=== PATIENT | female | born 1970 | race Caucasian/White ===

== ENCOUNTER 2017-02-07 10:39 | Emergency (ER) | payer OTHER ==
[~2017-02-07] VITALS: Ht 165.1 cm; Wt 68.0 kg
[2017-02-07 10:43] VITALS: BP 148/88
[2017-02-07] MEDS ORDERED: fentaNYL PF 100 MCG/2 ML VIAL IV PRN (11:00)
[2017-02-07 11:10] LABS: BASO # 0.1 x10^3/uL (0.0-0.2); BASO % 1 % (0-3); EOS # 0.2 x10^3/uL (0.0-0.7); EOS % 2 % (0-3); HEMATOCRIT 44.9 % (36.0-47.0); HEMOGLOBIN 15.5 g/dL (12.0-15.5); LYMPH # 2.1 x10^3/uL (1.0-4.8); LYMPH % 21 % (24-48); MEAN CORPUSCULAR HEMOGLOBIN 30 pg (25-35); MEAN CORPUSCULAR HGB CONC 35 g/dL (31-37); MEAN CORPUSCULAR VOLUME 87 fL (79-100); MONO # 0.8 x10^3/uL (0.0-1.1); MONO % 9 % (0-9); NEUT # 6.6 x10^3uL (1.8-7.7); NEUT % 67 % (31-73); PLATELET COUNT 279 x10^3/uL (140-400); RED CELL DISTRIBUTION WIDTH 13.5 % (11.5-14.5); WHITE BLOOD COUNT 9.9 x10^3/uL (4.0-11.0)
[2017-02-07 11:22] LABS: ALBUMIN 3.8 g/dL (3.4-5.0); ALBUMIN/GLOBULIN RATIO 0.9 (1.0-1.7); CALCIUM 8.8 mg/dL (8.5-10.1); CREATININE 0.7 mg/dL (0.6-1.0); GFR 89.3; POTASSIUM 3.8 mmol/L (3.5-5.1); TOTAL BILIRUBIN 0.6 mg/dL (0.2-1.0); TOTAL PROTEIN 8.1 g/dL (6.4-8.2)
[2017-02-07] MEDS ORDERED: IOHEXOL 300 MG/ML 75 ML VIAL. IV ONE (11:45)
--- NOTE | 2017-02-07 11:54 | PHYS DOC ---
Past History Past Medical History: No Pertinent History Past Surgical History: Tonsillectomy Smoking: Non-smoker Alcohol Use: None Drug Use: None Adult General Chief Complaint Chief Complaint: head and neck pain HPI HPI Patient is a 46-year-old female sent from the primary care physician's office with the complaint of head and neck pain. This began 2 days ago as a nonspecific mild headache. She woke up the next morning and her neck felt very sore, she thought she had slept wrong. She saw her doctor in the office and was prescribed Imitrex and Flexeril. She has taken those without relief. Patient denies fever or chills. She denies preceding illness. She denies any injury or whiplash type injury lately. She's never had this before. Her primary complaint right now is that her neck muscles are very painful and her head hurts where her neck muscles insert behind her ears. She does not have a particularly bad all over headache, it's just painful in that occipital area. She also feels that the front of her neck is "swollen" and her neck muscles hurt when she swallows. She does not have a sore throat, swallowing pain is more external. She did not have a sore throat prior to the symptoms beginning. Patient recently has been dealing with some knee pain and saw the doctor for that, she was prescribed an anti-inflammatory which she was taking but switched to Tylenol in the last day or so because of the neck pain. Review of Systems Review of Systems Constitutional: Denies fever or chills [] Eyes: Denies change in visual acuity, redness, or eye pain [] HENT: Denies nasal congestion or sore throat [] Respiratory: Denies cough or shortness of breath [] Musculoskeletal: As in history of present illness Integument: Denies rash or skin lesions [] Neurologic: Denies focal weakness or sensory changes [] Current Medications Current Medications Current Medications Medications (Trade) Dose Ordered Sig/Michael Start Time Stop Time Status Last Admin Dose Admin Fentanyl Citrate (Fentanyl 2ml Vial) 50 mcg PRN Q15MIN PRN 02/07/17 11:00 02/08/17 10:59 02/07/17 11:06 50 MCG Iohexol (Omnipaque 300 Mg/ml) 75 ml 1X ONCE 02/07/17 11:45 02/07/17 11:46 Allergies Allergies Allergies Coded Allergies Type Severity Reaction Last Updated Verified Penicillins Allergy Unknown 02/01/14 Yes Physical Exam Physical Exam Constitutional: Well developed, well nourished, alert, mentating normally, appears uncomfortable, she does not turn her head from side to side or flex/ extend her neck. She is swallowing without apparent difficulty and handling her secretions well. HENT: Normocephalic, atraumatic, bilateral external ears normal, bilateral EACs and TMs normal, oropharynx moist, no oral exudates, tonsils normal without tonsillitis, nose normal. [] Eyes: conjunctiva normal, no discharge. [] Neck: Tenderness over bilateral paraspinous cervical musculature and bilateral trapezius in the neck area. Tenderness present we're trapezius inserts Cardiovascular:Heart rate regular rhythm, no murmur [] Lungs & Thorax: Bilateral breath sounds clear to auscultation [] Abdomen: Bowel sounds normal, soft, no tenderness, no masses, no pulsatile masses. [] Skin: Warm, dry, no erythema, no rash. [] Back: No tenderness, no CVA tenderness. [] Extremities: No tenderness, no cyanosis, no clubbing, ROM intact, no edema. [] Neurologic: Alert and oriented X 3, normal motor function, normal sensory function, no focal deficits noted. [] Psychologic: Affect normal, judgement normal, mood normal. [] Current Patient Data Vital Signs Vital Signs Date Time Temp Pulse Resp B/P (MAP) Pulse Ox O2 Delivery O2 Flow Rate FiO2 02/07/17 11:15 76 96 02/07/17 11:06 16 02/07/17 10:43 98.5 Room Air Lab Results Laboratory Tests Test 02/07/17 10:59 White Blood Count 9.9 x10^3/uL (4.0-11.0) Red Blood Count 5.20 x10^6/uL (3.50-5.40) Hemoglobin 15.5 g/dL (12.0-15.5) Hematocrit 44.9 % (36.0-47.0) Mean Corpuscular Volume 87 fL (79-100) Mean Corpuscular Hemoglobin 30 pg (25-35) Mean Corpuscular Hemoglobin Concent 35 g/dL (31-37) Red Cell Distribution Width 13.5 % (11.5-14.5) Platelet Count 279 x10^3/uL (140-400) Neutrophils (%) (Auto) 67 % (31-73) Lymphocytes (%) (Auto) 21 % (24-48) L Monocytes (%) (Auto) 9 % (0-9) Eosinophils (%) (Auto) 2 % (0-3) Basophils (%) (Auto) 1 % (0-3) Neutrophils # (Auto) 6.6 x10^3uL (1.8-7.7) Lymphocytes # (Auto) 2.1 x10^3/uL (1.0-4.8) Monocytes # (Auto) 0.8 x10^3/uL (0.0-1.1) Eosinophils # (Auto) 0.2 x10^3/uL (0.0-0.7) Basophils # (Auto) 0.1 x10^3/uL (0.0-0.2) Sodium Level 137 mmol/L (136-145) Potassium Level 3.8 mmol/L (3.5-5.1) Chloride Level 102 mmol/L (98-107) Carbon Dioxide Level 25 mmol/L (21-32) Anion Gap 10 (6-14) Blood Urea Nitrogen 8 mg/dL (7-20) Creatinine 0.7 mg/dL (0.6-1.0) Estimated GFR (Cockcroft-Gault) 89.3 BUN/Creatinine Ratio 11 (6-20) Glucose Level 81 mg/dL (70-99) Calcium Level 8.8 mg/dL (8.5-10.1) Total Bilirubin 0.6 mg/dL (0.2-1.0) Aspartate Amino Transferase (AST) 14 U/L (15-37) L Alanine Aminotransferase (ALT) 31 U/L (14-59) Alkaline Phosphatase 75 U/L (46-116) Total Protein 8.1 g/dL (6.4-8.2) Albumin 3.8 g/dL (3.4-5.0) Albumin/Globulin Ratio 0.9 (1.0-1.7) L EKG EKG [] Radiology/Procedures Radiology/Procedures CT scan of the head and soft tissues of the neck read by the radiologist, no acute findings on either scan. [] Course & Med Decision Making Course & Med Decision Making Pertinent Labs and Imaging studies reviewed. (See chart for details) 46-year-old female presents with primarily neck pain which seems to be muscular , some head pain where her paraspinous and trapezius muscles insert into the base of her skull, but really a headache is not a big part of this. I considered the diagnosis of possible meningitis but I don't believe she has meningitis. She's had no fever, this began as primarily neck pain and continues to primarily be neck pain, her neck muscles are sore to palpation, her neck "stiffness" seems to be due to muscle soreness and not nuchal rigidity. CT scan of the head and soft tissue neck negative for significant findings. Labs unremarkable. The patient was given IV Toradol and 1 dose of a small amount of IV fentanyl. Her pain went from a 10 to a 3. She states she feels much more comfortable. She is massaging her neck muscles a little bit and that feels better. Discussed treatment plan and return precautions with the patient and her who understand and agree. See discharge instructions and prescriptions for plan. [] Dragon Disclaimer Dragon Disclaimer This chart was dictated in whole or in part using Voice Recognition software in a busy, high-work load, and often noisy Emergency Department environment. It may contain unintended and wholly unrecognized errors or omissions. Departure Departure: Impression: Primary Impression: Torticollis, acute Disposition: 01 HOME, SELF-CARE Condition: STABLE Referrals: ROBI RAE MD (PCP) Patient Instructions: Torticollis, Acute Additional Instructions: As we discussed, I believe your symptoms are coming from pain and stiffness of the neck muscles. Sometimes people wake up with this condition and don't really know why they got it. Continue taking Nambumetone 3 times a day, this is a good anti-inflammatory medication and will also help with the pain. Stop taking cyclobenzaprine (Flexeril) and sumitriptan, I don't believe those 2 are helping you. We will start prednisone, a steroid, which is a good anti-inflammatory. You had your first dose here, second dose is due tomorrow morning. Also prescription for hydrocodone, a strong pain medicine, use as needed for the next 2-3 days. This is an opiate, it will cause sedation and constipation. Do not take while driving. All of these medications, Nambumetone, prednisone, and hydrocodone, may be taken together, they are all different and will not cause interactions. Try ice because it helps with pain and inflammation to the affected areas. If you get worse, if you began to run a fever, if other new concerning symptoms , return to your doctor or emergency department. Scripts Prednisone (PREDNISONE) 20 Mg Tablet 1 TAB PO BID for neck pain, muscle inflammation, #10 TAB Prov: DELMIS VELEZ MD 02/07/17 Hydrocodone Bit/Acetaminophen (NORCO 5-325 TABLET) 1 Each Tablet 1-2 TAB PO Q4-6HRS for neck pain, #20 TAB Prov: DELMIS VELEZ MD 02/07/17 DELMIS VELEZ MD February 07, 2017 11:54
--- NOTE | 2017-02-07 12:34 | RAD ---
Clinical Indication: Headache and dizziness for 2 days. Technique: Study is dated February 07, 2017. CT images of the head were obtained from the skull base to the vertex without IV contrast. There are no comparison studies available. One or more of the following individualized dose reduction techniques were utilized for this examination: 1. Automated exposure control 2. Adjustment of the mA and/or kV according to patient size 3. Use of iterative reconstruction technique Findings: The ventricles are normal in size and configuration. There is no hemorrhage, extraaxial collection, mass, or midline shift. There is no large vascular distribution acute infarct. The posterior fossa and brainstem are unremarkable. Orbits are normal. The included paranasal sinuses and mastoid air cells are clear. There is no skull fracture appreciated on bone level images. Impression: No acute intracranial findings.
--- NOTE | 2017-02-07 12:38 | RAD ---
Indication: Left-sided neck pain for 2 days. Technique: Axial images and coronal and sagittal reformatted images are provided. 75 mL of intravenous Omnipaque 300 was administered without complication. No comparison is available. One or more of the following individualized dose reduction techniques were utilized for this examination: 1. Automated exposure control 2. Adjustment of the mA and/or kV according to patient size 3. Use of iterative reconstruction technique Findings: There is no mass or adenopathy. Subcentimeter lymph nodes along the cervical chains are presumed reactive. There is no fluid collection. Orbital contents are unremarkable. The included paranasal sinuses and mastoid air cells are clear. There is no airway narrowing. The parotid glands are unremarkable. Thyroid is normal in appearance. There is mild emphysema in the upper lobes. Impression: Negative for mass, adenopathy, or fluid collection.
[2017-02-07] MEDS ORDERED: PRED20TA PO (13:11)
[2017-02-07] MEDS ORDERED: HYDR-971 PO (13:11)
[2017-02-07] MEDS ORDERED: predniSONE 20 MG TABLET PO ONE (13:30)
== END 2017-02-07 13:25 | disposition home or self-care (01) ==
LOC: ER 10:39
DX: M43.6 Torticollis (principal); Z88.0 Allergy status to penicillin
CPT/HCPCS: 36415; 70450; 70491; 80053; 85027; 96374; 99285; J3010; J7512; Q9967

== ENCOUNTER → 2017-05-28 | Outpatient (CLI) | payer OTHER ==
[~2017-05-28] MED LIST: HYDR-971 PO; PRED20TA PO
--- NOTE | 2017-05-28 09:25 | RAD ---
Chest, 2 views, 05/28/2017: History: Productive cough, smoker Comparison is made to a study from 02/01/2014. The heart size is normal. There is minimal scarring over the pulmonary apices. There appear to be minimal scattered parenchymal scars. No pulmonary consolidation is seen. There is no evidence of pleural fluid. Mild spurring is present in the spine. IMPRESSION: No acute cardiopulmonary abnormality is detected.
== END | disposition home or self-care (01) ==
LOC: DXRADRC 09:05
PROVIDERS: ATTEND Physician Assistant
DX: G44.83 Primary cough headache (principal); J98.4 Other disorders of lung
CPT/HCPCS: 71020

== ENCOUNTER → 2017-06-02 | Outpatient (CLI) | payer OTHER ==
--- NOTE | 2017-06-02 10:08 | RAD ---
Chest, 2 views, 06/02/2017: History: Productive cough, wheezing Comparison is made to a study from 05/28/2017. The heart size and pulmonary vascularity are normal. There is minimal parenchymal scarring. No acute infiltrates are seen. There is no evidence of pleural fluid. Mild spurring is present in the spine. IMPRESSION: No acute cardiopulmonary abnormality is detected with no significant change since 05/28/2017.
== END | disposition home or self-care (01) ==
LOC: DXRADRC 09:52
PROVIDERS: ATTEND Physician Assistant
DX: J98.4 Other disorders of lung (principal); R06.2 Wheezing; R05 Cough
CPT/HCPCS: 71020

== ENCOUNTER 2019-05-28 08:17 | Emergency (ER) | payer SELFPAY ==
[~2019-05-28] VITALS: Ht 165.1 cm; Wt 81.6 kg
[~2019-05-28 08:17] MED LIST changes: +HYDR-3165 PO; -HYDR-971 PO
[2019-05-28] MEDS ORDERED: IV NORMAL SALINE 1,000ML 1,000 ML IV ONE (08:45)
[2019-05-28 08:52] LABS: BASO # 0.1 x10^3/uL (0.0-0.2); BASO % 1 % (0-3); EOS # 0.2 x10^3/uL (0.0-0.7); EOS % 3 % (0-3); HEMATOCRIT 45.7 % (36.0-47.0); HEMOGLOBIN 15.8 g/dL (12.0-15.5); LYMPH # 1.3 x10^3/uL (1.0-4.8); LYMPH % 16 % (24-48); MEAN CORPUSCULAR HEMOGLOBIN 30 pg (25-35); MEAN CORPUSCULAR HGB CONC 35 g/dL (31-37); MEAN CORPUSCULAR VOLUME 87 fL (79-100); MONO # 0.7 x10^3/uL (0.0-1.1); MONO % 9 % (0-9); NEUT # 5.9 x10^3uL (1.8-7.7); NEUT % 71 % (31-73); PLATELET COUNT 305 x10^3/uL (140-400); RED BLOOD COUNT 5.28 x10^6/uL (3.50-5.40); RED CELL DISTRIBUTION WIDTH 13.2 % (11.5-14.5); WHITE BLOOD COUNT 8.3 x10^3/uL (4.0-11.0)
[2019-05-28] MEDS ORDERED: IPRATRPIUM/ALBUTEROL 0.5/2.5MG 3 ML NEBU. NEB ONE (09:00)
[2019-05-28 09:11] LABS: ALBUMIN 3.9 g/dL (3.4-5.0); CALCIUM 9.2 mg/dL (8.5-10.1); CREATININE 1.1 mg/dL (0.6-1.0); GFR 52.4; POTASSIUM 3.6 mmol/L (3.5-5.1); TOTAL BILIRUBIN 0.5 mg/dL (0.2-1.0)
--- NOTE | 2019-05-28 09:11 | RAD ---
AP portable chest radiograph 05/28/2019 Clinical History: Chest pain. Shortness of breath. An AP erect portable digital radiograph of the chest was obtained. Comparison study is dated 06/02/2017. The cardiac and mediastinal silhouettes are within normal limits in size and configuration. No acute pulmonary infiltrate is noted. No pneumothorax or pleural effusion is seen. The osseous structures are grossly intact. Impression: No acute abnormality is seen. Electronically signed by: Bishop Arnold MD (05/28/2019 9:09 AM) [facility]
[2019-05-28] MEDS ORDERED: methylPREDNISolone SOD SUCC PF 125 MG/2 ML VIAL. IV ONE (09:45)
[2019-05-28] MEDS ORDERED: levoFLOXacin 500 MG TABLET PO ONE (09:45)
[2019-05-28 10:09] VITALS: BP 147/82
[2019-05-28] MEDS ORDERED: FEXO180T81 PO (10:16)
[2019-05-28] MEDS ORDERED: PRED50TA PO (10:16)
[2019-05-28] MEDS ORDERED: LEVO500T59 PO (10:16)
[2019-05-28] MEDS ORDERED: ALBU2.5V8 INH (10:17)
[2019-05-28 10:35] LABS: BGAS PH 7.41 (7.35-7.45)
--- NOTE | 2019-05-28 12:13 | ED.ADGEN ---
Past History Past Medical History: Anxiety, COPD Past Surgical History: Tonsillectomy Smoking: Non-smoker Alcohol Use: None Drug Use: None Adult General Chief Complaint Chief Complaint Shortness of air HPI HPI Patient is a 49-year-old smoker with history of COPD who presents with shortness of air, productive cough generalized weakness fatigue and sweats. Reports yellow-green sputum. Chest wall pain with cough Symptom onset was 2 weeks ago and have gradually progress. Patient has not sought medical evaluation for current complaints due to lack of resources. Reports feeling feverish but denies measured temperature. Orts nausea without vomiting. No other acute symptoms or complaints.[] Review of Systems Review of Systems Review symptoms as per history of present illness. All other review symptoms are negative. All other systems were reviewed and found to be within normal limits, except as documented in this note. Current Medications Current Medications Current Medications Medications (Trade) Dose Ordered Sig/Michael Start Time Stop Time Status Last Admin Dose Admin Albuterol/ Ipratropium (Duoneb) 3 ml 1X ONCE 05/28/19 09:00 05/28/19 09:01 DC 05/28/19 09:02 3 ML Levofloxacin (Levaquin) 500 mg 1X ONCE 05/28/19 09:45 05/28/19 09:46 DC 05/28/19 09:41 500 MG Methylprednisolone Sodium Succinate (SOLU-Medrol 125MG VIAL) 125 mg 1X ONCE 05/28/19 09:45 05/28/19 09:46 DC 05/28/19 09:41 125 MG Sodium Chloride 1,000 ml @ 1,000 mls/hr 1X ONCE 05/28/19 08:45 05/28/19 09:44 DC 05/28/19 09:02 1,000 MLS/HR Allergies Allergies Allergies Coded Allergies Type Severity Reaction Last Updated Verified Penicillins Allergy Unknown 02/01/14 Yes tramadol Allergy Unknown 05/28/19 Yes Physical Exam Physical Exam Constitutional: Well developed, well nourished, well-appearing.[] HENT: Normocephalic, atraumatic, bilateral external ears normal, oropharynx moist, no oral exudates, nose normal. [] Eyes: PERRLA, EOMI, conjunctiva normal, no discharge. [] Neck: Normal range of motion, no tenderness, supple, no stridor. [] Cardiovascular:Heart rate regular rhythm, no murmur [] Lungs & Thorax: Aspirations nonlabored, coarse diminished breath sounds bilaterally.[] Abdomen: Bowel sounds normal, soft, no tenderness, no masses, no pulsatile masses. [] Skin: Warm, dry, no erythema, no rash. [] Back: No tenderness, no CVA tenderness. [] Extremities: No tenderness, no cyanosis, no clubbing, ROM intact, no edema. [] Neurologic: Alert and oriented X 3, normal motor function, normal sensory function, no focal deficits noted. [] Psychologic: Affect normal, judgement normal, mood normal. [] Current Patient Data Vital Signs Vital Signs Date Time Temp Pulse Resp B/P (MAP) Pulse Ox O2 Delivery O2 Flow Rate FiO2 05/28/19 08:18 98.5 103 28 91 Room Air Lab Results Laboratory Tests Test 05/28/19 08:34 05/28/19 08:44 White Blood Count 8.3 x10^3/uL (4.0-11.0) Red Blood Count 5.28 x10^6/uL (3.50-5.40) Hemoglobin 15.8 g/dL (12.0-15.5) H Hematocrit 45.7 % (36.0-47.0) Mean Corpuscular Volume 87 fL (79-100) Mean Corpuscular Hemoglobin 30 pg (25-35) Mean Corpuscular Hemoglobin Concent 35 g/dL (31-37) Red Cell Distribution Width 13.2 % (11.5-14.5) Platelet Count 305 x10^3/uL (140-400) Neutrophils (%) (Auto) 71 % (31-73) Lymphocytes (%) (Auto) 16 % (24-48) L Monocytes (%) (Auto) 9 % (0-9) Eosinophils (%) (Auto) 3 % (0-3) Basophils (%) (Auto) 1 % (0-3) Neutrophils # (Auto) 5.9 x10^3uL (1.8-7.7) Lymphocytes # (Auto) 1.3 x10^3/uL (1.0-4.8) Monocytes # (Auto) 0.7 x10^3/uL (0.0-1.1) Eosinophils # (Auto) 0.2 x10^3/uL (0.0-0.7) Basophils # (Auto) 0.1 x10^3/uL (0.0-0.2) D-Dimer (Sophia) < 0.19 mg/L (0.00-0.50) Sodium Level 135 mmol/L (136-145) L Potassium Level 3.6 mmol/L (3.5-5.1) Chloride Level 99 mmol/L (98-107) Carbon Dioxide Level 24 mmol/L (21-32) Anion Gap 12 (6-14) Blood Urea Nitrogen 7 mg/dL (7-20) Creatinine 1.1 mg/dL (0.6-1.0) H Estimated GFR (Cockcroft-Gault) 52.4 BUN/Creatinine Ratio 6 (6-20) Glucose Level 120 mg/dL (70-99) H Calcium Level 9.2 mg/dL (8.5-10.1) Total Bilirubin 0.5 mg/dL (0.2-1.0) Aspartate Amino Transferase (AST) 45 U/L (15-37) H Alanine Aminotransferase (ALT) 61 U/L (14-59) H Alkaline Phosphatase 93 U/L (46-116) Troponin I Quantitative < 0.017 ng/mL (0-0.055) Total Protein 8.0 g/dL (6.4-8.2) Albumin 3.9 g/dL (3.4-5.0) Albumin/Globulin Ratio 1.0 (1.0-1.7) Blood pH 7.41 (7.35-7.45) Blood Gas PCO2 38 mmHg (35-45) Blood Gas PO2 78 mmHg (80-100) L Blood Gas HCO3 24 mmol/L (22-26) Arterial Bld O2 Saturation (Calc) 96 % (92-99) FiO2 26 % EKG EKG [] Radiology/Procedures Radiology/Procedures [] Course & Med Decision Making Course & Med Decision Making Pertinent Labs and Imaging studies reviewed. (See chart for details) [Steroids antibiotics breathing treatment given IV fluids with clinical improvement. Lab EKG chest x-ray reviewed right acute findings. Suspect a bacterial bronchitis with versus early pneumonia. Will continued supportive care with PCP follow-up. Return precautions reviewed. Patient verbalizes understanding agreement discharge instructions prior to departure.] Final Impression Final Impression [1. acute Bronchitis 2,. COPD exacerbation] Dragon Disclaimer Dragon Disclaimer This electronic medical record was generated, in whole or in part, using a voice recognition dictation system. ANEL BRIGGS DO May 28, 2019 12:13
== END 2019-05-28 10:20 | disposition home or self-care (01) ==
LOC: ER 08:17
DX: J20.9 Acute bronchitis, unspecified (principal); J44.0 Chronic obstructive pulmonary disease with (acute) lower respiratory infection; J44.1 Chronic obstructive pulmonary disease with (acute) exacerbation; F41.9 Anxiety disorder, unspecified; Z88.6 Allergy status to analgesic agent; Z88.0 Allergy status to penicillin
CPT/HCPCS: 36415; 71045; 80053; 82803; 84484; 85025; 85379; 87040; 94640; 96374; 99285; J2930; J7620; J7030

== ENCOUNTER 2019-11-07 09:32 | Emergency (ER) | payer SELFPAY ==
[~2019-11-07] VITALS: Ht 165.1 cm; Wt 150.5 kg
[~2019-11-07 09:32] MED LIST changes: +ALBU2.5V8 INH; +FEXO180T81 PO; +LEVO500T59 PO; +PRED50TA PO
[2019-11-07 09:42] VITALS: BP 147/80
--- NOTE | 2019-11-07 09:50 | PHYS DOC ---
Past History Past Medical History: Anxiety, COPD Past Surgical History: Tonsillectomy Smoking: Non-smoker, Cigarettes, Less than 1pk/day Alcohol Use: None Drug Use: None Adult General Chief Complaint Chief Complaint: COUGH HPI HPI Patient is a 49-year-old female with history of COPD, smoker, presented to ER t [facility] for evaluation of productive cough with yellow sputum for 4 days. Patient also complaint of fever and chill, she says she coughs so much at night, could not sleep. When she coughs her chest hurts. Patient denies any trouble breathing. Patient denies any abdominal pain, no nausea vomiting. Patient denies any recent travel out of country. Patient denies any history of coronary artery disease, no history of diabetes. Review of Systems Review of Systems All other ROS is negative unless otherwise noted in HPI Positive for productive cough with yellow sputum. Allergies Allergies Allergies Coded Allergies Type Severity Reaction Last Updated Verified Penicillins Allergy Unknown 02/01/14 Yes tramadol Allergy Unknown 05/28/19 Yes Physical Exam Physical Exam See above Constitutional: Well developed, well nourished, no acute distress, non-toxic appearance. [] HENT: Normocephalic, atraumatic, bilateral external ears normal, oropharynx moist, no oral exudates, nose normal. [] Eyes: PERRLA, EOMI, conjunctiva normal, no discharge. [] Neck: Normal range of motion, no tenderness, supple, no stridor. [] Cardiovascular:Heart rate regular rhythm, no murmur [] Lungs & Thorax: Bilateral breath sounds with expiratory wheezing. NO RESPIRATORY DISTRESS. Abdomen: Bowel sounds normal, soft, no tenderness, no masses, no pulsatile masses. [] Skin: Warm, dry, no erythema, no rash. [] Back: No tenderness, no CVA tenderness. [] Extremities: No tenderness, no cyanosis, no clubbing, ROM intact, no edema. [] Neurologic: Alert and oriented X 3, normal motor function, normal sensory function, no focal deficits noted. [] Psychologic: Affect normal, judgement normal, mood normal. [] Current Patient Data Vital Signs Vital Signs Date Time Temp Pulse Resp B/P (MAP) Pulse Ox O2 Delivery O2 Flow Rate FiO2 11/07/19 09:42 98.1 81 18 147/80 (102) 98 Room Air EKG EKG [] Radiology/Procedures Radiology/Procedures [][address] [address] IMAGING REPORT Signed PATIENT: KARLA CALVERT ACCOUNT: [id number] : 1970 LOCATION: ER AGE: 49 SEX: F EXAM STATUS: REG ER ORD. PHYSICIAN: VARUN FERRIS DO REASON: productive cough with yellow sputum for 4 days PROCEDURE: CHEST PA & LATERAL Chest, PA and Lateral: Technique: PA and lateral views of the chest were obtained. History: Productive cough. Comparison: 05/28/2019. Findings: The cardiomediastinal silhouette grossly appears unremarkable. Mild prominent bilateral interstitial lung markings particularly in the bibasilar lungs. IMPRESSION: Mild prominent interstitial lung markings particularly in the bibasilar lungs could be bronchitis. Electronically signed by: Roberto Hagen MD (11/07/2019 10:07 AM) [id number] DICTATED AND SIGNED BY: ROBERTO HAGEN MD DATE: 11/07/19 1007 CC: PCPCHERRI; VARUN FERRIS DO ~ Course & Med Decision Making Course & Med Decision Making Pertinent Labs and Imaging studies reviewed. (See chart for details) Patient is a 49-year-old female, smoker, and it was bronchitis, we'll discharge her home with treatment for IT. Educated her about smoking cessation. Dragon Disclaimer Dragon Disclaimer This electronic medical record was generated, in whole or in part, using a voice recognition dictation system. Departure Departure: Impression: Primary Impression: Bronchitis Disposition: 01 HOME, SELF-CARE Condition: STABLE Referrals: PCPCHERRI (PCP) FOLLOW UP WITH YOUR DOCTOR IN 2 DAYS FOR REEVALUATION Patient Instructions: Acute Bronchitis Additional Instructions: Thank you for visiting our Emergency Department. We appreciate you trusting us with your care. If any additional problems come up don't hesitate to return to visit us. Please follow up with your primary care provider so they can plan additional care if needed and know about the problem that you had. If symptoms worsen come back to the Emergency Department. Any concerning symptoms that start such as chest pain, shortness of air, weakness or numbness on one side of the body, running high fevers or any other concerning symptoms return to the ER. Scripts Albuterol Sulfate (PROAIR HFA INHALER) 8.5 Gm Hfa.aer.ad 2 PUFF IH PRN Q4-6HRS PRN for wheezing for 21 Days, #1 INHALER 0 Refills Prov: VARUN FERRIS DO 11/07/19 Prednisone (PREDNISONE) 20 Mg Tablet 1 TAB PO DAILY for BRONCHITIS for 10 Days, #10 TAB Prov: VARUN FERRIS DO 11/07/19 Azithromycin (ZITHROMAX) 250 Mg Tablet 1 PKG PO UD for BRONCHITIS, #6 TAB Prov: VARUN FERRIS DO 11/07/19 VARUN FERRIS DO Nov 07, 2019 09:50
--- NOTE | 2019-11-07 10:10 | RAD ---
Chest, PA and Lateral: Technique: PA and lateral views of the chest were obtained. History: Productive cough. Comparison: 05/28/2019. Findings: The cardiomediastinal silhouette grossly appears unremarkable. Mild prominent bilateral interstitial lung markings particularly in the bibasilar lungs. IMPRESSION: Mild prominent interstitial lung markings particularly in the bibasilar lungs could be bronchitis. Electronically signed by: Roberto Hagen MD (11/07/2019 10:07 AM) [id number]
[2019-11-07] MEDS ORDERED: ALBU2.5V8 IH (10:31)
[2019-11-07] MEDS ORDERED: AZIT250T PO (10:31)
[2019-11-07] MEDS ORDERED: PRED20TA PO (10:31)
== END 2019-11-07 10:40 | disposition home or self-care (01) ==
LOC: ER 09:32
DX: J40 Bronchitis, not specified as acute or chronic (principal); J44.9 Chronic obstructive pulmonary disease, unspecified; F17.210 Nicotine dependence, cigarettes, uncomplicated; Z88.0 Allergy status to penicillin; Z88.8 Allergy status to other drugs, medicaments and biological substances
CPT/HCPCS: 71046; 99283

== ENCOUNTER → 2021-09-16 | Outpatient (CLI) | payer OTHER ==
[~2021-09-16] MED LIST changes: +ALBU2.5V8 IH; +AZIT250T PO
--- NOTE | 2021-09-17 11:37 | RAD ---
BILATERAL DIGITAL SCREENING 2-D MAMMOGRAM INDICATION: Routine screening. COMPARISON: Exam of 08/18/2017 Interpretation was made using CAD. FINDINGS: Breast Density: B RIGHT BREAST: Peripherally calcified mass in the outer breast appears stable. There are no significan t new findings. LEFT BREAST: MLO view shows potential a new mass in the upper breast measuring about 1.7 cm. Margins appear irregular, although there are overlapping structures including vessels limiting evaluation. No corresponding finding is shown on the CC projection, although it could be too far lateral position. IMPRESSION: 1. New finding in the upper left breast on MLO view. Spot compression MLO view and exaggerated later al CC view are recommended along with ultrasound. ASSESSMENT: BI-RADS 0. Further workup indicated. RECOMMENDATION: Routine annual screening mammogram. The facility will notify the patient of the results via mail. Patient information will be entered int o the mammography reminder system with a target recall date for the next mammogram. A reminder letter will be generated by the facility. Electronically signed by: Steven Mortensen Jr., MD (09/17/2021 11:35 AM) [id number]
== END ==
LOC: MAMMO 09:11
PROVIDERS: ATTEND Nurse Practitioner
DX: Z12.31 Encounter for screening mammogram for malignant neoplasm of breast (principal)
CPT/HCPCS: 77067

== ENCOUNTER → 2021-10-01 | Outpatient (CLI) | payer OTHER ==
--- NOTE | 2021-10-01 15:24 | RAD ---
EXAM: Left breast diagnostic mammogram; left breast sonogram. HISTORY: 51-year-old female presents for evaluation of a left breast mass demonstrated on a screening mammogram dated 09/16/2021. TECHNIQUE: Full-field and spot compression views of the left breast are obtained. Sonographic imaging of the left breast and axilla was also performed. COMPARISON: 09/16/2021 BREAST PARENCHYMAL DENSITY: Level B - Scattered fibroglandular densities. FINDINGS: There is a spiculated mass within the posterior 2:00 position of the left breast in the axi llary tail. There are adjacent left axillary lymph nodes which are similar compared to prior studies. Sonographic imaging of the left breast demonstrates a 1.1 cm irregular mass with posterior shadowing and internal blood flow at the 2:00 position 12 cm from the nipple, corresponding with the mammograph ic lesion of concern. There are benign-appearing axillary lymph nodes. IMPRESSION: 1. 1.1 cm mass within the posterior 2:00 position of the left breast. Sonographic guided biopsy is re commended for definitive diagnosis. 2. BI-RADS Category 5: Highly suggestive of malignancy. These findings and recommendations were discussed with the patient and communicated to the referring clinician, January Hawley, at 1500 hours on 10/01/2021. If your mammogram demonstrates that you have dense breast tissue, which could hide abnormalities, and if you have other risk factors for breast cancer that have been identified, you might benefit from s upplemental screening tests that may be suggested by your ordering physician. Dense breast tissue, i n and of itself, is a relatively common condition. This information is not provided to cause undue c oncern, but rather to raise your awareness and to promote discussion with your physician regarding th e presence of other risk factors, in addition to dense breast tissue. A report of your mammography re sults will be sent to you and your physician. You should contact your physician if you have any ques tions or concerns regarding this report. Mammography is a sensitive method for finding small breast cancers, but it does not detect them all a nd is not a substitute for careful clinical examination. A negative mammogram does not negate a clin ically suspicious finding and should not result in delay in biopsying a clinically suspicious abnorma lity. PQRS compliance statement - Patient information was entered into a reminder system with a target due date for the next mammogram. "Our facility is accredited by the [employer] Mammography [employer]." Electronically signed by: Lisa Hernandez MD (10/01/2021 3:21 PM) [id number]
== END ==
LOC: MAMMO 13:42
PROVIDERS: ATTEND Nurse Practitioner
DX: N63.21 Unspecified lump in the left breast, upper outer quadrant (principal)
CPT/HCPCS: 76642; 77065

== ENCOUNTER → 2021-11-08 | Outpatient (CLI) | payer OTHER ==
--- NOTE | 2021-11-08 13:15 | RAD ---
EXAM: Pelvic sonogram. HISTORY: IUD placement. TECHNIQUE: Sonographic imaging of the pelvis was performed. COMPARISON: None. FINDINGS: The uterus measures 12.7 x 5.8 x 4.8 cm. There is an intrauterine contraceptive device with in the endometrial cavity. The ovaries are normal in size and demonstrate normal blood flow. There is a 3.9 cm complicated right ovarian cyst with internal septations or cluster of cysts. There is no pe lvic free fluid. IMPRESSION: 1. IUD in expected position. 2. 3.9 cm corticated right ovarian cyst with internal septations or cluster of cysts. Electronically signed by: Lisa Hernandez MD (11/08/2021 1:13 PM) [id number]
== END ==
LOC: US 12:34
PROVIDERS: ATTEND Nurse Practitioner
DX: N83.201 Unspecified ovarian cyst, right side (principal); Z30.433 Encounter for removal and reinsertion of intrauterine contraceptive device
CPT/HCPCS: 76856